=== PATIENT | female | born 1995 | race Caucasian/White ===

== ENCOUNTER → 2018-12-22 10:06 | Outpatient (CLI) | payer OTHER, SELFPAY ==
[2018-12-22 10:32] VITALS: BP 107/73; PULSE 63; RESP 14; O2SAT 100; BMI 22.3
--- NOTE | 2018-12-22 10:52 | HTC.HP3 ---
Problem List (1) Von Willebrand disease, type I Status: Chronic Subjective Date of Service:: 12/22/18 Chief Complaint: F/U for VWD. History of Present Illness: 23y.o.woman diagnosed with VWD, uses Stimate and Lysteda as needed. Comes in for follow up. No major bleeding in the last year, has not use Stimate or Lysteda. Menses are normal. Health History: Past Medical History Past Medical History: Bleeding disorder,Pneumonia Family History Paternal Past Medical History: Unknown Maternal Past Medical History: Bleeding disorder Past Medical History (Last Reviewed 12/22/18 @ 10:31 by Soha Sorensen) Von Willebrand disease (Acute) Allergies/Adverse Reactions: Allergy/AdvReac Type Severity Reaction Status Date / Time aminocaproic acid Allergy Mild Other Verified 12/22/18 10:32 [From Amicar] aspirin AdvReac Severe BLEEDING Verified 12/22/18 10:31 Risk Factors Social History Smoking Status Never smoker Tobacco Risk Data: Tobacco Risk Smoking Status Never smoker Type of tobacco: Smokeless tobacco usage: Items/Day: Year started: Years used: Counseled to quit/cut down: Reason for no counseling performed: Reason for no pharmacotherapy: Tobacco use comments: Passive smoke exposure: Substance Risk Drug use: No Caffeine use [drinks/day]: Alcohol use: No Type of alcohol: Drinks per day: Has patient felt the need to cut down: Has the patient been annoyed by complaints: Has the patient felt guilty about drinking: Has the patient needed an eye hammer adjuster in the mornings: Comments: Review of Systems Constitutional:: Denies: Fever, Sweats, Weight loss, Appetite change, Chills Cardiovascular:: Denies: Chest pain, Palpitations, Dyspnea on exertion, Orthopnea, PND, Shortness of breath Respiratory: Denies: Cough, Hemoptysis, Shortness of Breath, Wheezing Gastrointestinal:: Denies: Abdominal pain, Nausea, Vomiting, Diarrhea, Constipation, Hematochezia Genitourinary: Denies: Dysuria, Hematuria, 15, Flank pain Musculoskeletal:: Denies: Back pain, Myalgia, Arthralgia Skin: Denies: Rash, Skin Changes, Wounds Neurological:: Denies: Headache, Dizziness, Visual changes, Tinnitus, Hearing loss Psychiatric: Denies: Anxiety, Depression, Homicidal Ideations, Suicidal Ideations Vital Signs Height 5 ft 4 in Weight: 58.967 kg Weight in Pounds 130.0 lbs Pulse Ox 100 Pulse Rate 63 Respiratory Rate 14 Blood Pressure 107/73 Blood Pressure Position Sitting - Physical Exam General: Alert, Oriented x3, No apparent distress HEENT: Atraumatic, PERRLA, EOMI, Normocephalic Oropharynx:: Dry mucosa Neck:: Supple, Trachea midline. Negative for: JVD, bilateral Cardiac:: Regular rate, Regular rhythm, Normal S1, Normal S2. Negative for: Murmur Lungs: Clear to auscultation, Excusion symmetrical. Negative for: Rhonchi, Wheezes Abdomen:: Bowel sounds x 4, Soft, Non-tender, Non-distended. Negative for: Hepatosplenomegaly Extremities:: Negative for: Cyanosis, Edema Neurological: Neuro grossly intact Skin:: Negative for: Lesions, Rash, Petechiae, Ecchymosis Psychiatric:: Appropriate affect, Euthymic Lymphatics:: Negative for: Cervical lymphadenopathy, Supraclavicular lymphadenopathy, Axillary lymphadenopathy Therapy ROM Screening - Subjective Subjective:: Pt states she is doing fine- - Objective Right shoulder flex:: 145 Left shoulder flex:: 145 Right shoulder extension:: 40 Left shoulder extension:: 40 Right elbox flex/ext:: 150/0 Left elbox flex/ext:: 150/0 Right elbow circumference:: 23cm Left elbow circumference:: 23cm Right forearm sup/pron:: WNL Left forearm sup/pron:: WNL Right knee flexion:: 120 Left knee flexion:: 120 Right knee circumference:: not tested dress on Left knee circumference:: not tested dress on Right ankle dorsiflexion:: 20 Left ankle dorsiflexion:: 20 Right ankle Plan-flex:: 45 Left ankle Plan-flex:: 45 Right ankle circumference:: 22cm Left ankle circumference:: 22cm Right hip flexion:: 90 Left hip flexion:: 90 Right hip extension:: 20 Left hip extension:: 20 - Assessment Assessment:: Pt demo good ROM - no concerns at this time Assessment and Plan Von Willebrand disease type I, clinically stable. Has Stimate and Lysteda at home. Plan is to continue expectant management. RTC 1 yr. Primary Care Provider: Anastacio Hoang MD Referring Provider:
== END ==
PROVIDERS: Family Provider Family Medicine; PCP Family Medicine; Visit Provider Internal Medicine Medical Oncology
DX: D68.0 Von Willebrand disease (principal)